=== PATIENT | male | born 1960 | race Caucasian/White ===

== ENCOUNTER 2021-09-14 12:03 | Emergency (ER) | payer OTHER ==
[~2021-09-14] VITALS: Ht 193 cm; Wt 140.6 kg
[2021-09-14] MEDS ORDERED: METO100ER (12:39)
[2021-09-14] MEDS ORDERED: CITALOPRAM HBR10 MG (12:39)
[2021-09-14] MEDS ORDERED: Prinivil10 MG (12:40)
[2021-09-14] MEDS ORDERED: AMLO5 (12:41)
[2021-09-14] MEDS ORDERED: CELE100 PO (16:16)
== END 2021-09-14 16:45 | disposition home or self-care (01) ==
LOC: ER 12:03
DX: M54.50 Low back pain, unspecified (principal); I10 Essential (primary) hypertension; Z79.899 Other long term (current) drug therapy; Z87.891 Personal history of nicotine dependence; W01.0XXA Fall on same level from slipping, tripping and stumbling without subsequent striking against object, initial encounter
CPT/HCPCS: 72100; 72170; 99283-25; J1170; J2270; J2405